=== PATIENT | female | born 1995 | race Two or more races ===

== ENCOUNTER → 2023-09-14 | Emergency (ER) | payer OTHER ==
[~2023-09-14] VITALS: Ht 157.5 cm; Wt 99.8 kg
[~2023-09-14] MED LIST: AMLODIPINE-OLM1 EAC2 PO; CEFTRIAXONE SODIUM 1,000 MG VIAL IM STA; GENTAMICIN SULFATE 0.15 MG/DR DROPS 5ML OP STA
== END | disposition home or self-care (01) ==
LOC: ER 08:06
DX: H05.012 Cellulitis of left orbit (principal)